=== PATIENT | female | born 1940 | race Caucasian/White ===

== ENCOUNTER → 2020-05-23 | Day surgery (SDC) | payer OTHER ==
[2020-05-19 12:29] LABS: BASOPHILS % 0.3 % (0.0-1.0); EOSINOPHILS # (AUTO) 0.1 (0.0-0.4); EOSINOPHILS % 1.3 % (0.0-6.0); HEMATOCRIT 33.7 % (34.2-44.1); LYMPHOCYTES # (AUTO) 0.9 (1.0-3.2); MEAN CORPUSCULAR HEMOGLOBIN 31.3 pg (28-32); MEAN CORPUSCULAR HGB CONC 32.6 g/dL (31-35); MEAN CORPUSCULAR VOLUME 95.7 fL (81-99); MONOCYTES # (AUTO) 0.5 (0.2-0.8); MONOCYTES % 8.3 % (4.4-11.3); NEUTROPHILS # (AUTO) 4.7 (2.1-6.9); NEUTROPHILS % 74.5 % (38.7-80.0); PLATELET COUNT 264 x10e3/uL (140-360); RED BLOOD COUNT 3.52 x10e6/uL (3.6-5.1); RED CELL DISTRIBUTION WIDTH 12.7 % (11.7-14.4)
[~2020-05-23] MED LIST: AZITHROMYC200 MG/5 M; DEXILANT60 MG; DICYCLOMINE HCL10 MG PO; FAMOTIDINE20 MG PO; FLUOXETINE HCL10 MG PO; GABAPENTIN100 MG PO; LEVAQUIN500 MG PO; LIDOCAINE HCL 2% LOCAL INJ 5 ML SDV VIAL INJ ONE; LOSARTAN POTASS50 MG PO; LOSARTAN-HCTZ1 EAC1; LOSARTAN-HCTZ1 EAC1 PO; LYRICA75 MG PO; NORVASC10 MG PO; OMEPRAZOLE40 MG PO; PANTOPRAZOLE SO40 MG PO; PROBIOTIC & AC1 EACH PO; PROPOFOL IV EMULSION 10 MG/ML 20 ML VIAL ONE; TRAZODONE HCL50 MG PO; ULTRAM 50MG50 MG PO; ULTRAM50 MG PO; VALTREX1000 MG PO; VITAMIN D3 PO; ZOFRAN4 MG PO
[2020-05-23 12:45] VITALS: BP 144/86
== END | disposition home or self-care (01) ==
LOC: ENDO 09:40
PROVIDERS: ATTEND Internal Medicine Gastroenterology
DX: R19.5 Other fecal abnormalities (principal); K57.30 Diverticulosis of large intestine without perforation or abscess without bleeding; K64.4 Residual hemorrhoidal skin tags; K59.09 Other constipation; K64.8 Other hemorrhoids; I10 Essential (primary) hypertension; B15.9 Hepatitis A without hepatic coma; N39.0 Urinary tract infection, site not specified; R74.8 Abnormal levels of other serum enzymes; D64.9 Anemia, unspecified; Z88.6 Allergy status to analgesic agent; Z88.0 Allergy status to penicillin; Z01.810 Encounter for preprocedural cardiovascular examination; Z01.812 Encounter for preprocedural laboratory examination; Z11.59 Encounter for screening for other viral diseases; Z85.3 Personal history of malignant neoplasm of breast; Z98.890 Other specified postprocedural states
CPT/HCPCS: 36415; 45378; 85025; 87635; 93005; J2001; J2704; 45330

== ENCOUNTER 2024-06-01 18:11 | Emergency (ER) | payer MEDICARE ==
[~2024-06-01] VITALS: Ht 157.5 cm; Wt 50.8 kg
[~2024-06-01 18:11] MED LIST changes: -LIDOCAINE HCL 2% LOCAL INJ 5 ML SDV VIAL INJ ONE; -PROPOFOL IV EMULSION 10 MG/ML 20 ML VIAL ONE
[2024-06-01 18:39] VITALS: PULSE 70; RESP 18; TEMP 99
[2024-06-01] MEDS: SODIUM CHLORIDE 0.9% 1000ML 1,000 ML IV STA (19:04)
[2024-06-01] MEDS ORDERED: ALBUTEROL/IPRATROPIUM 3 ML NEB NEB STA (19:05)
[2024-06-01 19:06] LABS: BASOPHILS % 0.5 % (0.0-1.0); EOSINOPHILS % 0.4 % (0.0-6.0); HEMATOCRIT 34.6 % (34.2-44.1); HEMOGLOBIN 11.2 g/dL (12.0-16.0); LYMPHOCYTES # (AUTO) 2.1 (1.0-3.2); LYMPHOCYTES % 24.3 % (18.0-39.1); MEAN CORPUSCULAR HEMOGLOBIN 31.6 pg (28-32); MEAN CORPUSCULAR HGB CONC 32.4 g/dL (31-35); MEAN CORPUSCULAR VOLUME 97.7 fL (81-99); MONOCYTES # (AUTO) 0.7 (0.2-0.8); NEUTROPHILS # (AUTO) 5.6 (2.1-6.9); NEUTROPHILS % 66.3 % (38.7-80.0); PLATELET COUNT 323 x10e3/uL (140-360); RED BLOOD COUNT 3.54 x10e6/uL (3.6-5.1); RED CELL DISTRIBUTION WIDTH 14.1 % (11.7-14.4); WHITE BLOOD COUNT 8.48 x10e3/uL (4.8-10.8)
[2024-06-01] MEDS: ONDANSETRON HCL INJ 2MG/ML 2ML 2 MG/ML VIAL IV STA (19:09)
[2024-06-01 19:24] LABS: ALBUMIN 3.8 g/dL (3.5-5.0); ALBUMIN/GLOBULIN RATIO 1.1 (0.8-2.0); ANION GAP 15.6 mmol/L (8-16); BILIRUBIN,TOTAL 0.3 mg/dL (0.2-1.2); CALCIUM 9.3 mg/dL (8.4-10.2); CREATININE, SERUM 1.19 mg/dL (0.57-1.11); POTASSIUM 3.6 mmol/L (3.5-5.1); TOTAL PROTEIN 7.2 g/dL (6.5-8.1)
[2024-06-01] MEDS ORDERED: ONDANSETRON HCL INJ 2MG/ML 2ML 2 MG/ML VIAL ONE (19:25)
[2024-06-01] MEDS: Morphine 4mg INJECTION 4 MG/ML INJ IV STA (19:26)
[2024-06-01 19:29] LABS: TROPONIN I 0.002 ng/mL (0-0.300)
[2024-06-01] MEDS ORDERED: IOPAMIDOL 370 MG/ML 100 ML INFUS..BTL INJ ONE (19:40)
[2024-06-01] MEDS ORDERED: ULTRAM 50MG50 MG PO (23:14)
[2024-06-02 03:45] VITALS: BP 142/79; PULSE 80; RESP 17; TEMP 98; O2SAT 98
== END 2024-06-01 23:10 | disposition home or self-care (01) ==
LOC: ER 18:43
DX: R10.32 Left lower quadrant pain (principal); R11.2 Nausea with vomiting, unspecified; Z85.3 Personal history of malignant neoplasm of breast; Z90.13 Acquired absence of bilateral breasts and nipples
CPT/HCPCS: 36415; 74177; 80053; 82550; 83690; 84484; 85025; 93005; 99284; J2270; J2405; J7030; Q9967